=== PATIENT | female | born 1945 | race Caucasian/White ===

== ENCOUNTER 2020-01-19 11:57 | Day surgery (SDC) | payer MEDICARE, MEDICAID ==
[~2020-01-19] VITALS: Ht 167.6 cm; Wt 103.9 kg
[2020-01-19] VITALS (11 sets, daily range): BP systolic 111–148; BP diastolic 49–78
[~2020-01-19 11:57] MED LIST: MIDAZolam 5mg/5ml vial ONE; fentaNYL/PF 50MCG/1 ML 2ML syringe ONE
[2020-01-19] MEDS ORDERED: insulin Lispro (HumaLOG) vial - multi-dose SQ SCH (12:30)
[2020-01-19] MEDS ORDERED: dextrose 50%-water 50ml dispensing syringe IV PRN ×2 (12:30)
[2020-01-19] MEDS ORDERED: MESSAGE TO PHARMACY PO ONE (12:30)
[2020-01-19] MEDS ORDERED: dextrose ORAL solution 15 GM/59 ML bottle PO PRN ×2 (12:30)
[2020-01-19] MEDS ORDERED: nitroGLYCERIN 0.4mg SUBLingual tab SL PRN (12:30)
[2020-01-19] MEDS ORDERED: normal saline 1,000 ML IV SCH (12:30)
[2020-01-19] MEDS ORDERED: LORazepam 0.5 MG tablet PO PRN (12:30)
[2020-01-19] MEDS ORDERED: diphenhydrAMINE 25mg capsule PO PRN (12:30)
[2020-01-19] MEDS ORDERED: glucagon, human recombinant 1mg kit SUBCUT PRN (12:30)
[2020-01-19] MEDS ORDERED: SERT100T10 PO (12:47)
[2020-01-19] MEDS ORDERED: INSU100V12 SQ (12:47)
[2020-01-19] MEDS ORDERED: HUM7525 SQ (12:47)
[2020-01-19] MEDS ORDERED: ASPI-611 PO (12:47)
[2020-01-19] MEDS ORDERED: LEVO100T9 PO (12:47)
[2020-01-19] MEDS ORDERED: RISP2TAB3 PO (12:47)
[2020-01-19] MEDS ORDERED: ATOR40TA PO (12:47)
[2020-01-19] MEDS ORDERED: PANT-47 PO (12:47)
[2020-01-19] MEDS ORDERED: BENA40TA73 PO (12:47)
[2020-01-19] MEDS ORDERED: CLON-369 PO (12:47)
[2020-01-19 13:25] LABS: HEMOGLOBIN A1C 8.4 % (4.5-6.2)
[2020-01-19] MEDS ORDERED: midazolam 2 mg/2 ml injection ONE ×2 (13:47→14:31)
[2020-01-19] MEDS ORDERED: iohexol 350MG/ML 100ml bottle IV ONE (13:48)
[2020-01-19] MEDS ORDERED: LIDOcaine 1% (10mg/ml)w/preservative injection 20ml MDV ONE (13:48)
[2020-01-19] MEDS ORDERED: fentaNYL/PF 50MCG/1 ML 2ML syringe ONE (13:48)
[2020-01-19] MEDS ORDERED: iohexol 350 MG/ML 50ML vial IV ONE (13:48)
[2020-01-19] MEDS ORDERED: HYDROcodone/acetaminophen 5mg/325mg tablet PO PRN (15:40)
[2020-01-19] MEDS ORDERED: proCHLORperazine 10 MG/2 ml inj IV PRN (15:40)
[2020-01-19] MEDS ORDERED: ondansetron/PF 4mg/2ml inj IV PRN (15:40)
[2020-01-19] MEDS ORDERED: OXAZEpam 15mg capsule PO PRN (15:40)
[2020-01-19] MEDS ORDERED: acetaminophen 325mg tablet PO PRN (15:40)
[2020-01-19] MEDS ORDERED: HYDROcodone/acetaminophen 10/325mg tab PO PRN (15:40)
[2020-01-19] MEDS ORDERED: insulin glargine (Lantus) pen - multi-dose SQ SCH (21:00)
== END 2020-01-19 19:55 | disposition home or self-care (01) ==
LOC: SSTAY O 11:57
PROVIDERS: ATTEND Internal Medicine Cardiovascular Disease
DX: R94.39 Abnormal result of other cardiovascular function study (principal); I25.118 Atherosclerotic heart disease of native coronary artery with other forms of angina pectoris; E11.9 Type 2 diabetes mellitus without complications; F31.9 Bipolar disorder, unspecified; I25.5 Ischemic cardiomyopathy; I11.0 Hypertensive heart disease with heart failure; I50.22 Chronic systolic (congestive) heart failure; J44.9 Chronic obstructive pulmonary disease, unspecified; E66.01 Morbid (severe) obesity due to excess calories; Z68.37 Body mass index [BMI] 37.0-37.9, adult; E78.5 Hyperlipidemia, unspecified; Z85.850 Personal history of malignant neoplasm of thyroid; Z90.710 Acquired absence of both cervix and uterus; E89.0 Postprocedural hypothyroidism; Z87.440 Personal history of urinary (tract) infections; Z79.82 Long term (current) use of aspirin; Z79.4 Long term (current) use of insulin; Z79.899 Other long term (current) drug therapy; Z87.891 Personal history of nicotine dependence; Z82.49 Family history of ischemic heart disease and other diseases of the circulatory system
CPT/HCPCS: 36415; 82948; 83036; 83880; 84439; 84443; 84480; 93005; 93458; 99152; 99153; C1760; C1769; J1644; J2001; J2250; J3010; Q9967; A4620; A6258